=== PATIENT | female | born 1955 | race Caucasian/White ===

== ENCOUNTER 2016-10-16 06:18 | Day surgery (SDC) | payer OTHER ==
[2016-10-14 16:24] VITALS: BMI 34.7
--- NOTE | 2016-10-16 06:37 | HP ---
CHIEF COMPLAINT: For ECT PCP: Dr. Berto Harvey HISTORY OF PRESENT ILLNESS: This is a 60 year old female with a history of depression (no hospitalizations) who presents for her first ECT. Recent Travel: None PAST MEDICAL HISTORY: GERD PAST SURGICAL HISTORY: Right knee arthroscopic, left knee arthroscopic x 2. No history of adverse reaction to anesthesia. Social History: Lives with Smoking: Never smoker Alcohol: Infrequent Drugs: None Allergies Penicillins Allergy (Intermediate, Verified 10/14/16 15:59) Rash HOME MEDICATIONS: Home Medications Medication Instructions Recorded Brexpiprazole [Rexulti] 2 mg PO DAILY 10/14/16 Omeprazole Magnesium [Prilosec] 10 mg PO DAILY PRN 10/14/16 Vilazodone Hydrochloride [Viibryd] 40 mg PO DAILY 10/14/16 EKG Sinus bradycardia at 52 bpm, no ST or T wave changes LABS including CBC and CMP unremarkable REVIEW OF SYSTEMS CONSTITUTIONAL: Absent: fever, chills, diaphoresis, generalized weakness, malaise, loss of appetite, weight change HEENT: Absent: rhinorrhea, nasal congestion, throat pain, throat swelling, difficulty swallowing, mouth swelling, ear pain, eye pain, visual changes CARDIOVASCULAR: Absent: chest pain, syncope, palpitations, irregular heart rate, lightheadedness , peripheral edema RESPIRATORY: Absent: cough, shortness of breath, dyspnea with exertion, orthopnea, wheezing, stridor, hemoptysis GASTROINTESTINAL: Diarrhea 3x daily in morning x 3 wks, none today Absent: abdominal pain, abdominal distension, nausea, vomiting, constipation, melena, hematochezia GENITOURINARY: Absent: dysuria, frequency, urgency, hesitancy, hematuria, flank pain, genital pain MUSCULOSKELETAL: Absent: myalgia, arthralgia, joint swelling, back pain, neck pain SKIN: Absent: rash, itching, pallor HEMATOLOGIC/IMMUNOLOGIC: Absent: easy bleeding, easy bruising, lymphadenopathy, frequent infections ENDOCRINE: Absent: unexplained weight gain, unexplained weight loss, heat intolerance, cold intolerance NEUROLOGIC: Absent: headache, focal weakness or paresthesias, dizziness, unsteady gait, seizure, mental status changes, bladder or bowel incontinence PSYCHIATRIC: Depression. No SI/HI/AH/VH. PHYSICAL EXAMINATION GENERAL: Awake, alert, and fully oriented, in no acute distress. HEAD: Normal with no signs of trauma. EYES: Pupils equal, round and reactive to light, extraocular movements intact, sclera anicteric, conjunctiva clear. No lid lag. EARS, NOSE, THROAT: Ears normal, nares patent, oropharynx clear without exudates. Moist mucous membranes. NECK: Normal range of motion, supple without lymphadenopathy, JVD, or masses. LUNGS: Breath sounds equal, clear to auscultation bilaterally. No wheezes, and no crackles. No accessory muscle use. HEART: Regular rate and rhythm, normal S1 and S2 without murmur, rub or gallop. ABDOMEN: Soft, nontender even to deep palpation, not distended, normoactive bowel sounds, no guarding, no rebound, no masses. No hepatomegaly or splenomegaly. MUSCULOSKELETAL: Normal range of motion at all joints. No bony deformities or tenderness. No CVA tenderness. UPPER EXTREMITIES: 2+ pulses, warm, well-perfused. No cyanosis. No clubbing. No peripheral edema. LOWER EXTREMITIES: 2+ pulses, warm, well-perfused. No calf tenderness. No peripheral edema. NEUROLOGICAL: Cranial nerves II-XII intact. Normal speech. Normal gait. PSYCHIATRIC: Cooperative. Good eye contact. Appropriate mood and affect. SKIN: Warm, dry, normal turgor, no rashes or lesions noted, normal capillary refill. ASSESSMENT/PLAN: 60 year old female, medically optimized for ECT. NPO since 9pm 10/15. Visit type - Emergency Visit Emergency Visit: No - New Patient This patient is new to me today: Yes Date on this admission: 10/16/16 - Critical Care Critical Care patient: No
[2016-10-16 07:40] LABS: BASOPHIL 1.5 % (0-2.0); EOSINOPHIL 1.9 % (0-4.5); MCH 29.9 pg (25.7-33.7); MCHC 33.5 g/dl (32.0-36.0); MEAN CELL VOLUME 89.2 fl (80-96); NEUTROPHILS 49.2 % (42.8-82.8); PLATELET COUNT 192 K/MM3 (134-434); RDW 12.7 % (11.6-15.6); WHITE BLOOD COUNT 6.4 K/mm3 (4.0-10.8)
[2016-10-16 07:48] LABS: ALBUMIN 4.1 g/dl (3.5-5.0); ALK PHOS 35 U/L (32-92); ANION GAP 8 (8-16); BILIRUBIN,TOTAL 0.5 mg/dl (0.2-1.0); CALCIUM 9.5 mg/dl (8.4-10.2); CO2 28 mmol/L (22-28); CREATININE 0.8 mg/dl (0.6-1.3); GLUCOSE,RANDOM 112 mg/dl (74-106); SGOT/AST 23 U/L (10-42); SGPT/ALT 18 U/L (10-40); TOT PROT 7.1 g/dl (6.4-8.3)
[2016-10-16] MEDS ORDERED: ONDANSETRON 4 MG/2 ML VIAL IVPUSH PRN (08:01)
[2016-10-16] MEDS ORDERED: LACTATED RINGERS SOLUTION 1,000 ML IV SCH (08:15)
[2016-10-16] MEDS ORDERED: KETAMINE HCL 500 MG/10 ML VIAL ONE (08:22)
[2016-10-16 10:09] VITALS: BP 138/78; PULSE 50; TEMP 97.7
--- NOTE | 2016-10-18 10:21 | EKG ---
Test Reason : Blood Pressure : / mmHG Vent. Rate : 052 BPM Atrial Rate : 052 BPM P-R Int : 170 ms QRS Dur : 088 ms QT Int : 446 ms P-R-T Axes : 053 052 049 degrees QTc Int : 414 ms SINUS BRADYCARDIA LOW VOLTAGE QRS CANNOT RULE OUT ANTERIOR INFARCT , AGE UNDETERMINED ABNORMAL ECG NO PREVIOUS ECGS AVAILABLE Confirmed by GURVINDER LOZANO MD ([id number]) on 10/18/2016 10:20:44 AM Referred By: Petr Ramirez Confirmed By:GURVINDER LOZANO MD
== END 2016-10-16 09:30 | disposition home or self-care (01) ==
LOC: FECT 06:18
PROVIDERS: ATTEND Psychiatry & Neurology Psychiatry
PROC: GZB4ZZZ Other Electroconvulsive Therapy (ICD-10-PCS; principal; 2016-10-16 08:30)
DX: F33.2 Major depressive disorder, recurrent severe without psychotic features (principal)
CPT/HCPCS: 36415; 80053; 85025; 90870; 93005; 94760

== ENCOUNTER 2016-10-19 05:50 | Day surgery (SDC) | payer OTHER ==
[2016-10-15 11:25] VITALS: BMI 34.7
[2016-10-19] MEDS ORDERED: KETAMINE HCL 500 MG/10 ML VIAL ONE (07:46)
[2016-10-19] MEDS ORDERED: LACTATED RINGERS SOLUTION 1,000 ML IV SCH (08:00)
[2016-10-19 09:24] VITALS: TEMP 97.6
[2016-10-19 09:25] VITALS: BP 140/66; PULSE 54
[2016-10-19] MEDS ORDERED: ONDANSETRON 4 MG/2 ML VIAL IVPUSH PRN (09:52)
[2016-10-19] MEDS ORDERED: PROMETHAZINE HCL 25 MG/1 ML VIAL IVPUSH PRN (09:52)
== END 2016-10-19 09:29 | disposition home or self-care (01) ==
LOC: FECT 05:50
PROVIDERS: ATTEND Psychiatry & Neurology Psychiatry
PROC: GZB4ZZZ Other Electroconvulsive Therapy (ICD-10-PCS; principal; 2016-10-19 08:00)
DX: F33.2 Major depressive disorder, recurrent severe without psychotic features (principal)
CPT/HCPCS: 90870; 94760

== ENCOUNTER 2016-10-21 05:38 | Day surgery (SDC) | payer OTHER ==
[2016-10-15 11:34] VITALS: BMI 34.7
[2016-10-21] MEDS ORDERED: KETAMINE HCL 500 MG/10 ML VIAL ONE (07:10)
[2016-10-21 08:31] VITALS: TEMP 97.8
[2016-10-21 08:33] VITALS: BP 121/77; PULSE 54
== END 2016-10-21 08:36 | disposition home or self-care (01) ==
LOC: FECT 05:38
PROVIDERS: ATTEND Psychiatry & Neurology Psychiatry
PROC: GZB4ZZZ Other Electroconvulsive Therapy (ICD-10-PCS; principal; 2016-10-21 07:00)
DX: F33.2 Major depressive disorder, recurrent severe without psychotic features (principal)
CPT/HCPCS: 90870; 94760

== ENCOUNTER 2016-10-23 05:40 | Day surgery (SDC) | payer OTHER ==
[2016-10-19 17:10] VITALS: BMI 34.7
[2016-10-23] MEDS ORDERED: KETAMINE HCL 500 MG/10 ML VIAL ONE (07:17)
[2016-10-23 08:05] VITALS: PULSE 58; TEMP 97.8
[2016-10-23 08:25] VITALS: BP 124/78
== END 2016-10-23 08:51 | disposition home or self-care (01) ==
LOC: FECT 05:40
PROVIDERS: ATTEND Psychiatry & Neurology Psychiatry
PROC: GZB4ZZZ Other Electroconvulsive Therapy (ICD-10-PCS; principal; 2016-10-23 07:30)
DX: F33.2 Major depressive disorder, recurrent severe without psychotic features (principal)
CPT/HCPCS: 90870; 94760

== ENCOUNTER 2016-10-26 05:41 | Day surgery (SDC) | payer OTHER ==
[2016-10-21 11:48] VITALS: BMI 34.7
[2016-10-26] MEDS ORDERED: KETAMINE HCL 500 MG/10 ML VIAL ONE (06:52)
[2016-10-26 07:46] VITALS: TEMP 98
[2016-10-26 08:29] VITALS: BP 140/58; PULSE 60
[2016-10-26] MEDS ORDERED: LACTATED RINGERS SOLUTION 1,000 ML IV SCH (09:30)
== END 2016-10-26 08:33 | disposition home or self-care (01) ==
LOC: FECT 05:41
PROVIDERS: ATTEND Psychiatry & Neurology Psychiatry
PROC: GZB4ZZZ Other Electroconvulsive Therapy (ICD-10-PCS; principal; 2016-10-26 07:30)
DX: F33.2 Major depressive disorder, recurrent severe without psychotic features (principal)
CPT/HCPCS: 90870; 94760

== ENCOUNTER 2016-10-28 05:37 | Day surgery (SDC) | payer OTHER ==
[2016-10-21 11:51] VITALS: BMI 34.7
[2016-10-28] MEDS ORDERED: KETAMINE HCL 500 MG/10 ML VIAL ONE (07:04)
[2016-10-28 07:56] VITALS: TEMP 98
[2016-10-28 09:13] VITALS: BP 140/76; PULSE 56
== END 2016-10-28 08:55 | disposition home or self-care (01) ==
LOC: FECT 05:37
PROVIDERS: ATTEND Psychiatry & Neurology Psychiatry
PROC: GZB4ZZZ Other Electroconvulsive Therapy (ICD-10-PCS; principal; 2016-10-28 07:30)
DX: F33.2 Major depressive disorder, recurrent severe without psychotic features (principal)
CPT/HCPCS: 90870; 94760

== ENCOUNTER 2016-11-02 05:39 | Day surgery (SDC) | payer OTHER ==
[2016-10-22 08:50] VITALS: BMI 34.7
[2016-11-02] MEDS ORDERED: KETAMINE HCL 500 MG/10 ML VIAL ONE (07:27)
[2016-11-02] MEDS ORDERED: LACTATED RINGERS SOLUTION 1,000 ML IV SCH (07:30)
[2016-11-02] MEDS ORDERED: oxyCODONE HCL 5 MG TABLET PO PRN (07:30)
[2016-11-02] MEDS ORDERED: ONDANSETRON 4 MG/2 ML VIAL IVPUSH PRN (07:30)
[2016-11-02 08:27] VITALS: TEMP 98.2
[2016-11-02 09:42] VITALS: BP 144/66; PULSE 60
== END 2016-11-02 08:30 | disposition home or self-care (01) ==
LOC: FECT 05:39
PROVIDERS: ATTEND Psychiatry & Neurology Psychiatry
PROC: GZB4ZZZ Other Electroconvulsive Therapy (ICD-10-PCS; principal; 2016-11-02 07:30)
DX: F33.2 Major depressive disorder, recurrent severe without psychotic features (principal)
CPT/HCPCS: 90870; 94760

== ENCOUNTER 2016-11-04 05:37 | Day surgery (SDC) | payer OTHER ==
[2016-10-22 09:19] VITALS: BMI 34.7
[2016-11-04] MEDS ORDERED: KETAMINE HCL 500 MG/10 ML VIAL ONE (08:05)
[2016-11-04] MEDS ORDERED: ONDANSETRON 4 MG/2 ML VIAL IVPUSH PRN (09:06)
[2016-11-04] MEDS ORDERED: PROMETHAZINE HCL 25 MG/1 ML VIAL IVPUSH PRN (09:06)
[2016-11-04] MEDS ORDERED: LACTATED RINGERS SOLUTION 1,000 ML IV SCH (09:15)
[2016-11-04 09:24] VITALS: TEMP 98.1
[2016-11-04 09:26] VITALS: BP 126/81; PULSE 56
== END 2016-11-04 09:30 | disposition home or self-care (01) ==
LOC: FECT 05:37
PROVIDERS: ATTEND Psychiatry & Neurology Psychiatry
PROC: GZB4ZZZ Other Electroconvulsive Therapy (ICD-10-PCS; principal; 2016-11-04 07:15)
DX: F33.2 Major depressive disorder, recurrent severe without psychotic features (principal)
CPT/HCPCS: 90870; 94760

== ENCOUNTER 2016-11-06 05:40 | Day surgery (SDC) | payer OTHER ==
[2016-10-22 12:00] VITALS: BMI 34.7
[2016-11-06] MEDS ORDERED: KETAMINE HCL 500 MG/10 ML VIAL ONE (08:02)
[2016-11-06 09:18] VITALS: TEMP 98.2
[2016-11-06 09:49] VITALS: BP 134/72; PULSE 56
[2016-11-06] MEDS ORDERED: LACTATED RINGERS SOLUTION 1,000 ML IV SCH (13:00)
== END 2016-11-06 09:51 | disposition home or self-care (01) ==
LOC: FECT 05:40
PROVIDERS: ATTEND Psychiatry & Neurology Psychiatry
PROC: GZB4ZZZ Other Electroconvulsive Therapy (ICD-10-PCS; principal; 2016-11-06 07:15)
DX: F33.2 Major depressive disorder, recurrent severe without psychotic features (principal)
CPT/HCPCS: 90870; 94760

== ENCOUNTER 2016-11-26 05:40 | Day surgery (SDC) | payer OTHER ==
[2016-10-23 08:19] VITALS: BMI 34.7
--- NOTE | 2016-11-26 07:29 | HP ---
Admitting History and Physical - Admission History of Present Illness: patient is a 60 y/o female with a past medical history of depression. patient presents for ect, her last ect was 11/06/16. she reports feeling well and reports an improvement in depressive symptoms since starting ect. She denies any recent illness or hospitalizations. She denies any suicidal or homicidal ideation, visual or auditory hallucinations. History Source: Patient - Smoking History Smoking history: Never smoked Have you smoked in the past 12 months: No - Alcohol/Substance Use Hx Alcohol Use: Yes (RARE) - Social History Usual Living Arrangement: Yes: With Spouse ADL: Independent History of Recent Travel: Yes (returned from [place] 2 weeks ago ) Home Medications - Allergies Allergies/Adverse Reactions: Allergies Allergy/AdvReac Type Severity Reaction Status Date / Time Penicillins Allergy Intermediate Rash Verified 10/19/16 17:05 - Home Medications Home Medications: Ambulatory Orders Brexpiprazole [Rexulti] 2 mg PO DAILY 10/14/16 Omeprazole Magnesium [Prilosec] 10 mg PO DAILY PRN 10/14/16 Vilazodone Hydrochloride [Viibryd -] 40 mg PO DAILY 10/14/16 Piroxicam 20 mg PO DAILY 11/26/16 Family Disease History - Family Disease History Family History: Unremarkable Review of Systems - Review of Systems Constitutional: reports: No Symptoms Eyes: reports: No Symptoms HENT: reports: No Symptoms Neck: reports: No Symptoms Cardiovascular: reports: No Symptoms Respiratory: reports: No Symptoms Gastrointestinal: reports: No Symptoms Genitourinary: reports: No Symptoms Musculoskeletal: reports: No Symptoms Integumentary: reports: No Symptoms Neurological: reports: No Symptoms Endocrine: reports: No Symptoms Hematology/Lymphatic: reports: No Symptoms Psychiatric: reports: No Symptoms Physical Examination Vital Signs: Vital Signs Temperature 98.0 F 11/26/16 06:48 Pulse Rate 50 L 11/26/16 06:48 Respiratory Rate 18 11/26/16 06:48 Blood Pressure 135/83 11/26/16 06:48 O2 Sat by Pulse Oximetry (%) 99 11/26/16 06:48 Constitutional: Yes: Well Nourished, No Distress, Calm Eyes: Yes: WNL, Conjunctiva Clear, EOM Intact HENT: Yes: WNL, Atraumatic, Normocephalic Neck: Yes: WNL, Supple, Trachea Midline Cardiovascular: Yes: WNL, Regular Rate and Rhythm, S1, S2 Respiratory: Yes: WNL, Regular, CTA Bilaterally Gastrointestinal: Yes: WNL, Normal Bowel Sounds, Soft ...Rectal Exam: Yes: Deferred Renal/: Yes: WNL Musculoskeletal: Yes: WNL Extremities: Yes: WNL Edema: No Peripheral Pulses WNL: Yes Peripheral Pulses: Left Radial: 4+, Right Radial: 4+, Left Doralis Pedis: 3+, Right Dorsalis Pedis: 3+, Left Femoral: 3+, Right Femoral: 3+ Integumentary: Yes: WNL Neurological: Yes: WNL, Alert, Oriented ...Motor Strength: WNL Psychiatric: Yes: WNL, Alert, Oriented Imaging - Results EKG: Image Reviewed, Other (nsr) Assessment/Plan pt is a 60 y/o female that presents for ect, she has received ect in the past and denies any adverse reaction to anesthesia labs and ekg reviewed pt is medically optimized for procedure
[2016-11-26] MEDS ORDERED: KETAMINE HCL 500 MG/10 ML VIAL ONE (07:38)
[2016-11-26] MEDS ORDERED: ONDANSETRON 4 MG/2 ML VIAL IVPUSH PRN (07:47)
[2016-11-26] MEDS ORDERED: PROMETHAZINE HCL 25 MG/1 ML VIAL IVPUSH PRN (07:47)
[2016-11-26] MEDS ORDERED: LACTATED RINGERS SOLUTION 1,000 ML IV SCH (08:00)
[2016-11-26 08:49] VITALS: TEMP 98
[2016-11-26 09:21] VITALS: BP 143/67; PULSE 56
== END 2016-11-26 09:20 | disposition home or self-care (01) ==
LOC: FECT 05:40
PROVIDERS: ATTEND Psychiatry & Neurology Psychiatry
PROC: GZB4ZZZ Other Electroconvulsive Therapy (ICD-10-PCS; principal; 2016-11-26 07:15)
DX: F33.2 Major depressive disorder, recurrent severe without psychotic features (principal)
CPT/HCPCS: 90870; 94760

== ENCOUNTER 2016-12-01 05:37 | Day surgery (SDC) | payer OTHER ==
[2016-11-26 10:36] VITALS: BMI 34.7
[2016-12-01 07:23] VITALS: TEMP 98.1
[2016-12-01] MEDS ORDERED: KETAMINE HCL 500 MG/10 ML VIAL ONE (08:08)
[2016-12-01 09:40] VITALS: BP 136/73; PULSE 68
== END 2016-12-01 09:40 | disposition home or self-care (01) ==
LOC: FECT 05:37
PROVIDERS: ATTEND Psychiatry & Neurology Psychiatry
PROC: GZB4ZZZ Other Electroconvulsive Therapy (ICD-10-PCS; principal; 2016-12-01 07:30)
DX: F33.2 Major depressive disorder, recurrent severe without psychotic features (principal)
CPT/HCPCS: 90870; 94760

== ENCOUNTER 2016-12-04 05:34 | Day surgery (SDC) | payer OTHER ==
[2016-11-26 11:12] VITALS: BMI 34.7
[2016-12-04] MEDS ORDERED: KETAMINE HCL 500 MG/10 ML VIAL ONE (07:27)
[2016-12-04 08:39] VITALS: TEMP 98.1
[2016-12-04 08:40] VITALS: BP 144/68; PULSE 58
== END 2016-12-04 08:42 | disposition home or self-care (01) ==
LOC: FECT 05:34
PROVIDERS: ATTEND Psychiatry & Neurology Psychiatry
PROC: GZB4ZZZ Other Electroconvulsive Therapy (ICD-10-PCS; principal; 2016-12-04 07:00)
DX: F33.2 Major depressive disorder, recurrent severe without psychotic features (principal)
CPT/HCPCS: 90870; 94760